=== PATIENT | female | born 1980 | race Two or more races ===

== ENCOUNTER 2019-04-24 12:05 | Emergency (ER) | payer BC ==
[~2019-04-24] VITALS: Ht 167.6 cm; Wt 74.8 kg
[2019-04-24] MEDS ORDERED: KETOROLAC TROMETHAMINE INJ 30 MG/ML VIAL IV ONE (12:30)
--- NOTE | 2019-04-24 12:31 | NUR ---
benitop pa at bedside for eval.
--- NOTE | 2019-04-24 12:45 | NUR ---
iv line started blood drawn and sent to lab.
[2019-04-24 12:50] LABS: BASOPHILS # (AUTO) 0.1 /CMM (0.0-0.2); BASOPHILS % (AUTO) 0.2 % (0.0-2.0); EOSINOPHILS % (AUTO) 0.2 % (0.0-6.0); HEMATOCRIT 41 % (33-45); HEMOGLOBIN 13.8 g/dL (11.5-14.8); LYMPHOCYTES # (AUTO) 1.4 /CMM (0.8-4.8); LYMPHOCYTES % (AUTO) 6.5 % (20.0-44.0); MEAN CORPUSCULAR HGB CONC 34 g/dl (31.0-36.0); MEAN CORPUSCULAR VOLUME 86 fL (82-100); MONOCYTES # (AUTO) 0.7 /CMM (0.1-1.30); MONOCYTES % (AUTO) 3.4 % (2.0-12.0); NEUTROPHILS # (AUTO) 19.6 /CMM (1.8-8.9); NEUTROPHILS % (AUTO) 89.7 % (43.0-81.0); PLATELET COUNT (AUTO) 353 /CMM (150-450); RED BLOOD CELL COUNT(AUTO) 4.72 MIL/uL (4.0-5.2); WHITE BLOOD COUNT (AUTO) 21.9 K/uL (4.3-11.0)
--- NOTE | 2019-04-24 12:51 | NUR ---
RADIOLOGY AT BEDSIDE FOR CHEST XRAY.
[2019-04-24] MEDS ORDERED: KETOROLAC TROMETHAMINE INJ 30 MG/ML VIAL ONE (12:53)
[2019-04-24 13:03] LABS: APPEARANCE,URINE SLIGHTLY CLOUDY (CLEAR); BILIRUBIN,URINE Negative (NEGATIVE); BLOOD, URINE Small Ery/uL (NEGATIVE); COLOR,URINE Yellow (YELLOW); KETONES,URINE Negative (NEGATIVE); LEUKOCYTE ESTERASE ,URINE Small (NEGATIVE); NITRITE, URINE Negative (NEGATIVE); PH,URINE 6.5 (5.0-8.0); PROTEIN,URINE Negative (NEGATIVE); UGLUCOSE Negative (NEGATIVE); UROBILINOGEN,URINE 0.2 EU/dL (0.2)
[2019-04-24 13:06] LABS: CALCIUM, SERUM 9.3 mg/dL (8.5-10.1); CREATININE 0.7 mg/dL (0.6-1.3)
[2019-04-24 13:07] LABS: BACTERIA,URINE None seen /HPF (None Seen); SQUAMOUS EPITHELIAL CELL,UR Few /HPF (None Seen)
--- NOTE | 2019-04-24 13:33 | NUR ---
Patient discharged to home in stable condition. Written and verbal after care instructions given. Patient verbalizes understanding of instruction.IV removed. Catheter intact and site benign. Pressure and 4x4 applied to site. No bleeding noted.
[2019-04-24 13:34] VITALS: BP 135/84
== END 2019-04-24 13:34 | disposition home or self-care (01) ==
LOC: ER 12:21
DX: J02.0 Streptococcal pharyngitis (principal); B95.4 Other streptococcus as the cause of diseases classified elsewhere; R59.0 Localized enlarged lymph nodes; R00.0 Tachycardia, unspecified
CPT/HCPCS: 36415; 71045; 80048; 81001; 84703; 85025; 87804 ×2; 87880; 96374; 99284; J1885; 81000-TC; 86403-TC

== ENCOUNTER 2019-04-24 20:37 | Emergency (ER) | payer BC ==
[~2019-04-24] VITALS: Ht 157.5 cm; Wt 62.1 kg
--- NOTE | 2019-04-24 21:00 | NUR ---
PT WAS JUST SEEN AT THE HOSPITAL AND DX WITH STREP. PT IS SLIGHTLY TACHY ON THE MONITOR AND HAS A SLIGHT FEVER 100.3F ORALLY. PT AMBULATED TO ER 7 WITH A STEADY GAIT. Clifford HAINES PA-C IS AT THE BEDSIDE.
[2019-04-24] MEDS ORDERED: DEXAMETHASONE SOD PHOSPHATE 10 MG/ML VIAL ONE (21:20)
[2019-04-24] MEDS ORDERED: PENICILLIN G BENZATHINE 2.4 MMU/4 ML ML IM ONE ×2 (21:20→21:30)
[2019-04-24] MEDS ORDERED: MORPHINE SULFATE INJ 4 MG/ML DISP.SYRIN ONE (21:20)
[2019-04-24] MEDS ORDERED: IV NS 0.9% 1,000 ML BAG IV ONE ×2 (21:30→23:00)
[2019-04-24] MEDS ORDERED: DEXAMETHASONE SOD PHOSPHATE 4 MG/ML VIAL IV ONE (21:30)
[2019-04-24] MEDS ORDERED: MORPHINE SULFATE INJ 2 MG/ML DISP.SYRIN IV ONE (21:30)
--- NOTE | 2019-04-24 21:31 | NUR ---
PT MEDICATED ORDERED.
--- NOTE | 2019-04-24 22:50 | NUR ---
2ND LITER NS STARTED
--- NOTE | 2019-04-24 23:40 | NUR ---
VITAL SIGNS WITHIN NORMAL LIMITS. IV removed. Catheter intact and site benign. Pressure and 4x4 applied to site. No bleeding noted. Patient discharged to home in stable condition. Written and verbal after care instructions given. Patient verbalizes understanding of instruction AND RX. PT'S IS DRIVING PT HOME. VSS.
[2019-04-24 23:48] VITALS: BP 128/71
== END 2019-04-24 23:40 | disposition home or self-care (01) ==
LOC: ER 20:38
DX: J02.0 Streptococcal pharyngitis (principal); B95.4 Other streptococcus as the cause of diseases classified elsewhere; Z88.2 Allergy status to sulfonamides
CPT/HCPCS: 96372; 96374; 96375; 99283; J0558; J1100; J2270; J7030 ×2